=== PATIENT | male | born 1955 | race Two or more races ===

== ENCOUNTER 2021-05-08 08:03 | Inpatient (IN) | payer MEDICAID ==
[~2021-05-08] VITALS: Ht 165.1 cm; Wt 84.8 kg
--- NOTE | 2021-05-08 08:06 | NUR ---
TO ER BED 5, [id number] FROM [facility], FOUND UNRESPONSIVE. BG 44 UPON EMS ARRIVAL. GLUCAGON 1ML IM GIVEN MAIL CLERK BILLS, CONNECTED TO MONITOR, AWAITING MD COLEMAN
[2021-05-08] MEDS ORDERED: NALOXONE PREFILLED SYRINGE 2 MG/2 ML SYRINGE ONE (08:13)
--- NOTE | 2021-05-08 08:15 | NUR ---
NARCAN 2MG GIVEN IVP PER DR BEAVER VERBAL ORDER.
[2021-05-08] MEDS ORDERED: BISA10SU11 RC (08:26)
[2021-05-08] MEDS ORDERED: DORZ10DR13 EACHEYE (08:26)
[2021-05-08] MEDS ORDERED: GUAI100S11 PO (08:26)
[2021-05-08] MEDS ORDERED: INSU100V39 SQ (08:26)
[2021-05-08] MEDS ORDERED: ATOR40TA PO (08:26)
[2021-05-08] MEDS ORDERED: VITA1TAB56 PO (08:26)
[2021-05-08] MEDS ORDERED: FERR325T23 PO (08:26)
[2021-05-08] MEDS ORDERED: ACET-868 PO (08:26)
[2021-05-08] MEDS ORDERED: INSU100V7 SQ (08:26)
[2021-05-08] MEDS ORDERED: OMEG1CAP40 PO (08:26)
[2021-05-08] MEDS ORDERED: CHOL400T PO (08:26)
[2021-05-08] MEDS ORDERED: METO25TA20 PO (08:26)
[2021-05-08] MEDS ORDERED: CALC1TAB30 PO (08:26)
[2021-05-08] MEDS ORDERED: AMIN30LI2 PO (08:26)
[2021-05-08] MEDS ORDERED: POLY15DR40 EACHEYE (08:26)
[2021-05-08] MEDS ORDERED: GABA-532 PO (08:26)
[2021-05-08] MEDS ORDERED: MELA5TAB PO (08:26)
[2021-05-08] MEDS ORDERED: POLY17PO4 PO (08:26)
[2021-05-08] MEDS ORDERED: ASPI-1420 PO (08:26)
[2021-05-08] MEDS ORDERED: LATA2.5D2 EACHEYE (08:26)
[2021-05-08] MEDS ORDERED: GEMF600T PO (08:26)
[2021-05-08] MEDS ORDERED: AMLO10TA4 PO (08:26)
[2021-05-08] MEDS ORDERED: ASCO-352 PO (08:26)
[2021-05-08] MEDS ORDERED: BRIM5DRO EACHEYE (08:26)
[2021-05-08] MEDS ORDERED: FAMO20TA8 PO (08:26)
[2021-05-08] MEDS ORDERED: MAGN400O6 PO (08:26)
[2021-05-08] MEDS ORDERED: HUM10VIA SQ (08:26)
[2021-05-08] MEDS ORDERED: NA P133E RC (08:26)
[2021-05-08] MEDS ORDERED: TAMS-12 PO (08:26)
[2021-05-08] MEDS ORDERED: MULT-447 PO (08:26)
[2021-05-08] MEDS ORDERED: BUME1TAB8 PO (08:26)
[2021-05-08] MEDS ORDERED: IV LR 1000 ML 1,000 ML IV ONE (08:30)
[2021-05-08] MEDS ORDERED: NALOXONE PREFILLED SYRINGE 2 MG/2 ML SYRINGE IV ONE (08:30)
--- NOTE | 2021-05-08 08:30 | NUR ---
COVID ANTIGEN AND PCR SWAB DONE AND SENT TO LAB
--- NOTE | 2021-05-08 08:31 | NUR ---
AAOX3, BREATHING EVEN AND NON LABORED
[2021-05-08 08:40] LABS: BASOPHILS % (AUTO) 0.4 % (0.0-2.0); EOSINOPHILS % (AUTO) 0.4 % (0.0-6.0); HEMATOCRIT 36 % (39-51); LYMPHOCYTES # (AUTO) 1.6 K/uL (0.8-4.8); LYMPHOCYTES % (AUTO) 17.9 % (20.0-44.0); MEAN CORPUSCULAR HGB CONC 34 g/dl (31.0-36.0); MEAN CORPUSCULAR VOLUME 95 fL (80-96); MONOCYTES # (AUTO) 0.7 K/uL (0.1-1.30); MONOCYTES % (AUTO) 7.7 % (2.0-12.0); NEUTROPHILS # (AUTO) 6.6 K/uL (1.8-8.9); NEUTROPHILS % (AUTO) 73.6 % (43.0-81.0); PLATELET COUNT (AUTO) 285 K/uL (150-450); RED BLOOD CELL COUNT(AUTO) 3.74 MIL/uL (4.5-6.0)
[2021-05-08 09:14] LABS: ALANINE AMINOTRANSFERASE 22 U/L (12-78); ALBUMIN 3.3 g/dL (3.4-5.0); ALCOHOL, BLOOD < 3 mg/dL (0-0); ALKALINE PHOSPHATASE 124 U/L (46-116); ASPARTATE AMINOTRANSFERASE 16 U/L (15-37); BILIRUBIN,DIRECT 0.1 mg/dL (0.0-0.2); BILIRUBIN,TOTAL 0.3 mg/dL (0.2-1.0); CALCIUM, SERUM 8.7 mg/dL (8.5-10.1); CARBON DIOXIDE 26 mmol/L (21-32); CHLORIDE 103 mmol/L (98-107); CREATININE 2.9 mg/dL (0.6-1.3); GLUCOSE 75 mg/dL (74-106); SODIUM SERUM 140 mmol/L (136-145); TOTAL PROTEIN, SERUM 7.6 g/dL (6.4-8.2); UREA NITROGEN, BLOOD 38 mg/dL (7-18)
[2021-05-08 09:17] LABS: ACETAMINOPHEN 0 ug/ml (10-30); POTASSIUM 2.4 mmol/L (3.5-5.1)
[2021-05-08] MEDS ORDERED: POTASSIUM CHLORIDE 10 MEQ/50 ML PREMIXED IVPB FOR PERIPHERAL LINE IV ONE (09:30)
[2021-05-08] MEDS ORDERED: IV NS 0.9% 1,000 ML IV ONE (09:30)
[2021-05-08] MEDS ORDERED: POTASSIUM CL. PREMIX PERIPHER. 50 ML ONE (09:31)
[2021-05-08] MEDS ORDERED: POTASSIUM CHLORIDE 20 MEQ TAB.PRT.SR PO ONE ×2 (11:00→11:04)
[2021-05-08] MEDS ORDERED: ASPIRIN 325 MG TABLET PO ONE (11:00)
[2021-05-08] MEDS ORDERED: ASPIRIN 325 MG TABLET ONE (11:05)
[2021-05-08] MEDS ORDERED: NITROGLYCERIN PACKET 1 GM PACKET TOP ONE (12:00)
[2021-05-08] MEDS ORDERED: NITROGLYCERIN PACKET 1 GM PACKET ONE (12:22)
[2021-05-08] MEDS ORDERED: CEFTRIAXONE 1 G in IV D5W 50 ML IV SCH (13:00)
[2021-05-08] MEDS ORDERED: CEFTRIAXONE 1GM BAG (ER ONLY) 50 ML IV ONE (13:13)
[2021-05-08] MEDS ORDERED: VANCOMYCIN 1.5 GM in IV D5W 500 ML IV ONE (13:30)
[2021-05-08] MEDS ORDERED: HEPARIN SODIUM, PORCINE 5000 UNITS/1 ML VIAL IV ONE (14:00)
[2021-05-08] MEDS ORDERED: HEPARIN SODIUM, PORCINE 5000 UNITS/1 ML VIAL ONE (14:04)
[2021-05-08] MEDS ORDERED: HEPARIN INFUSION/D5W 500 ML IV ONE (14:06)
[2021-05-08] MEDS: HEPARIN INFUSION/D5W 500 ML IV PRN ×2 (14:12→19:10)
--- NOTE | 2021-05-08 14:33 | NUR ---
CALLED NURSING SUP REGARDING PT BED
--- NOTE | 2021-05-08 15:03 | NUR ---
ROOM 104
--- NOTE | 2021-05-08 15:34 | NUR ---
REPORT GIVEN TO MARIA EUGENIA MCCARTY).
[2021-05-08 15:58] LABS: BILIRUBIN,URINE NEGATIVE (NEGATIVE); COLOR,URINE YELLOW (YELLOW); LEUKOCYTE ESTERASE ,URINE NEGATIVE (NEGATIVE); NITRITE, URINE NEGATIVE (NEGATIVE); PH,URINE 5.5 (5.0-8.0); PROTEIN,URINE TRACE mg/dl (NEGATIVE); UGLUCOSE 250 MG/DL mg/dL (NEGATIVE); UROBILINOGEN,URINE 0.2 EU/dL (0.2)
--- NOTE | 2021-05-08 16:06 | NUR ---
PT TRANSFERRED TO [facility] PER ACLS PROTOCOL.
[2021-05-08 16:14] LABS: RBC,URINE NONE SEEN /HPF (0-2)
[2021-05-08 16:15] LABS: BACTERIA,URINE None seen /HPF (None Seen); SQUAMOUS EPITHELIAL CELL,UR Rare /HPF (None Seen); WBC,URINE 0-2 /HPF (0-3)
--- NOTE | 2021-05-08 16:24 | NUR ---
COMMUNITY CENTER DIRECTOR NOTE CALLED TO DR RICHARDSON ABOUT HEPARIN DRIP ,DR RICHARDSON ORDERED TO D\C DRIP AT HIS TIME , ORDER CARRIED OUT
[2021-05-08] MEDS ORDERED: MAG HYDROX/AL HYDROX/SIMETH 30 ML UDC PO PRN (16:30)
[2021-05-08] MEDS ORDERED: ZOLPIDEM TARTRATE 5 MG TABLET PO PRN (16:30)
[2021-05-08] MEDS ORDERED: HYDROCODONE/APAP 5/325MG TABLET PO PRN (16:30)
[2021-05-08] MEDS ORDERED: MAGNESIUM HYDROXIDE 30 ML UDC PO PRN (16:30)
[2021-05-08] MEDS ORDERED: ACETAMINOPHEN 325 MG TABLET PO PRN (16:30)
[2021-05-08] MEDS ORDERED: Z GUARD REMEDY 4 OZ OINT TP PRN (16:30)
[2021-05-08] MEDS: IV D5/0.45 NACL 1,000 ML IV PRN (16:30)
[2021-05-08] MEDS ORDERED: ONDANSETRON HCL/PF 4 MG/2 ML VIAL IVP PRN (16:30)
--- NOTE | 2021-05-08 16:48 | NUR ---
RN OPENING NOTE PATIENT RECEIVED FROM ALIGNING CHECKERTOSHA EM. PATIENT A/0X3. ON ROOM AIR BREATHING EVEN AND UNLABORED WITH O2SAT OF 96%. PATIENT V/S STABLE UPON RECEIPT OF PATIENT. PATIENT HAS RAC 18G AND L HAND 20G IV INTACT AND PATENT. RAC RUNNING HEPARIN INFUSION AT 1200 PER PROTOCOL. TELE SHOWS NSR/ST IN 100'S. ALL SAFETY MEASURES IN PLACE. BED IN LOWEST AND LOCKED POSITION. CALL LIGHT WITHIN REACH. WILL CONTINUE TO MONITOR. Addendum: 05/08/21 at 1652 by MARIA EUGENIA RIZO RN PATIENT RECEIVED AT 1615.
[2021-05-08] MEDS: GEMFIBROZIL 600 MG TABLET PO SCH (17:04)
--- NOTE | 2021-05-08 18:35 | NUR ---
RN closing Note Patient is resting comfortably and is in no acute distress. Call light and tray table with personal belongings within reach. Patient was monitored throughout shift and vitals remained in patient's base line. Interventions were completed as needed. All of the patient's needs have been met. Assistance was provided as needed. All due medications were administered as needed per MD orders. Will endorse to incoming nurse.
--- NOTE | 2021-05-08 19:50 | NUR ---
RN NOTE PATIENT RESTING IN BED, AROUSABLE. ON ROOM AIR, NO SOB NOTED. NO SIGNS OF DISCOMFORT OR ANY PAIN. IV ACCESS ON RIGHT AC #18 AND LEFT HAND #20, PATENT AND INTACT. ON HEPARIN, INFUSING @ 24ML/HR. NO S/S OF ANY BLEEDING. BED LOCKED AND IN LOWEST POSITION. CALL LIGHT WITHIN REACH. ALL NEEDS ANTICIPATED.
[2021-05-08 20:00] VITALS: BP 99/55
[2021-05-08] MEDS: TAMSULOSIN 0.4 MG CAP.SR.24H PO SCH (22:06)
[2021-05-08] MEDS: LATANOPROST EYE DROP 0.005% 2.5 ML BOTTLE EACHEYE SCH (22:06)
[2021-05-08] MEDS: ATORVASTATIN 40 MG TABLET PO SCH (22:06)
[2021-05-08] MEDS: TIMOLOL MAL/DORZOLAM HCL OPHTH 10 ML BOTTLE EACHEYE SCH (22:06)
[2021-05-08] MEDS: GABAPENTIN 300 MG CAPSULE PO SCH (22:06)
[2021-05-08] MEDS: INSULIN GLARGINE, 100 UNIT/ML CARTRIDGE SQ SCH (22:07)
[2021-05-09] VITALS: BP 129/61
--- NOTE | 2021-05-09 00:30 | NUR ---
RN NOTE RELAYED TROPONIN 4819 TO JEAN-CLAUDE GUERRERO MD WITH NEW ORDER FOR TROPONIN X3 Q3HRS. NOTED AND CARRIED OUT. YASIR CHARGE NURSE AWARE.
--- NOTE | 2021-05-09 02:38 | NUR ---
RN NOTE TROPONIN LVL DRAWN EARLIER ALONG WITH PTT DUE TO PATIENT'S REQUEST. RELAYED TROPONIN 4994 TO JEAN-CLAUDE GUERRERO AND PATIENT COMPLAINING OF CHEST PAIN 08/19. VITAL SIGNS REMAINS STABLE. WITH NO NEW ORDERS AT THIS TIME. OFFERED PATIENT NORCO PRN ORDER AND PATIENT REFUSED. PTT 67.5, NO CHANGE PER HEPARIN PROTOCOL ORDER. YASIR CHARGE NURSE AWARE. ASSISTED PATIENT TO RESTROOM, HAD X1 BM.
[2021-05-09 04:00] VITALS: BP 110/63
[2021-05-09] MEDS: IV D5/0.45 NACL 1,000 ML IV PRN (06:44)
--- NOTE | 2021-05-09 06:58 | NUR ---
RN NOTE PATIENT RESTING IN BED. ON ROOM AIR, NO SOB NOTED. IV ACCESS ON RIGHT AC #18 AND LEFT HAND #20, PATENT AND INTACT. ON HEPARIN, INFUSING @ 24ML/HR. NO S/S OF ANY BLEEDING. ASSISTED PATIENT TO BATHROOM, VOIDED X2 AND X2 BM. DUE MEDS GIVEN ORDERED. BED LOCKED AND IN LOWEST POSITION. CALL LIGHT WITHIN REACH. WILL ENDORSE TO AM SHIFT.
[2021-05-09 07:03] LABS: THYROID STIMULATING HORMONE 0.914 uIU/mL (0.358-3.74)
[2021-05-09 07:04] LABS: CALCIUM, SERUM 7.6 mg/dL (8.5-10.1); CREATININE 2.4 mg/dL (0.6-1.3); MAGNESIUM 2.1 mg/dL (1.8-2.4); PHOSPHORUS 2.3 mg/dL (2.5-4.9); POTASSIUM 3.4 mmol/L (3.5-5.1)
[2021-05-09 07:10] LABS: BASOPHILS # (AUTO) 0.1 K/uL (0.0-0.2); BASOPHILS % (AUTO) 0.4 % (0.0-2.0); EOSINOPHILS % (AUTO) 1.2 % (0.0-6.0); HEMATOCRIT 28 % (39-51); HEMOGLOBIN 9.5 g/dL (13.5-17.5); LYMPHOCYTES # (AUTO) 2.2 K/uL (0.8-4.8); LYMPHOCYTES % (AUTO) 13.9 % (20.0-44.0); MEAN CORPUSCULAR HGB CONC 34 g/dl (31.0-36.0); MEAN CORPUSCULAR VOLUME 96 fL (80-96); MONOCYTES # (AUTO) 0.7 K/uL (0.1-1.30); MONOCYTES % (AUTO) 4.5 % (2.0-12.0); NEUTROPHILS # (AUTO) 12.8 K/uL (1.8-8.9); PLATELET COUNT (AUTO) 213 K/uL (150-450); RED BLOOD CELL COUNT(AUTO) 2.94 MIL/uL (4.5-6.0); WHITE BLOOD COUNT (AUTO) 16.1 K/uL (4.3-11.0)
[2021-05-09 08:00] VITALS: BP 105/64
--- NOTE | 2021-05-09 08:06 | NUR ---
RN OPENING NOTE PATIENT RECEIVED IN BED, AO X 3, ABLE TO RESPONDS PHYSICAL STIMULI. IN NO ACUTE DISTRESS NOTED. RESPIRATORY EVEN AND UNLABORED ON ROOM AIR. SKIN IS WARM TO TOUCH, KEEP CLEAN/DRY, INTACT IV SITE. KEPT ELEVATED HOB FOR ENSURE AIRWAY AND ASPIRATION PRECAUTION, ALSO LOWEST POSITION OF THE BED, S/R UP X 3 FOR SAFETY. ALL SAFETY PRECAUTION APPLIED. CALL LIGHT WITHIN REACH, WILL CONTINUE TO MONITOR.
[2021-05-09] MEDS ORDERED: POTASSIUM CHLORIDE 20 MEQ TAB.PRT.SR PO SCH (09:30)
[2021-05-09] MEDS: ASPIRIN EC 81 MG TABLET.DR PO SCH (09:33)
[2021-05-09] MEDS: GEMFIBROZIL 600 MG TABLET PO SCH ×2 (09:33→16:38)
[2021-05-09] MEDS: PANTOPRAZOLE 40 MG TABLET.DR PO SCH (09:33)
[2021-05-09] MEDS: MULTIVITAMINS,THERAGRAN 1 UDTAB TABLET PO SCH (09:33)
[2021-05-09] MEDS: GABAPENTIN 300 MG CAPSULE PO SCH ×2 (09:35→21:57)
[2021-05-09] MEDS: TIMOLOL MAL/DORZOLAM HCL OPHTH 10 ML BOTTLE EACHEYE SCH ×2 (09:36→21:58)
[2021-05-09 12:00] VITALS: BP 127/79
[2021-05-09] MEDS: HEPARIN INFUSION/D5W 500 ML IV PRN (15:33)
[2021-05-09 16:00] VITALS: BP 110/63
[2021-05-09] MEDS ORDERED: K PHOS NEUTRAL 250 MG TABLET PO ONE (16:00)
--- NOTE | 2021-05-09 18:30 | NUR ---
RN CLOSE NOTE PATIENT IN BED, IN NO ACUTE DISTRESS OBSERVED. RESPIRATION EVEN AND UNLABORED ON ROOM AIR. SKIN IS WARM TO TOUCH KEEP CLEAN//DRY, INTACT IV SITE. PATIENT RECEIVED CARDIAC CATH ORDER, HOWEVER, REFUSED TO SIGN ON CONSENT. CALLED DTR: YOLANDA CURRY BUT UNABLE TO LEAVE MESSAGE. INFORMED DR. MCINTYRE REGARDING ABOVE. KEEP ELEVATED HOB FOR ENSURE AIRWAY AND ASPIRATION PRECAUTION. ALSO LOWEST POSITION OF THE BED FOR SAFETY. CALL LIGHT WITHIN REACH, WILL CONTINUE TO MONITOR. Addendum: 05/09/21 at 1946 by SOBIA GHOTRA RN ERROR
--- NOTE | 2021-05-09 19:20 | NUR ---
RN OPENING NOTES RECEIVED PATIENT ON BED, AWAKE, VERBALLY RESPONSIVE, BLIND, A/O X 3 ON ROOM AIR SATING AT 100%. RESPIRATORY EVEN AND UNLABORED, NO SOB NOTED. REMAIN AFEBRILE. NO S/S OF DISTRESS NOTED. NOTED WITH RAC #18 AND LEFT HAND #20 PERIPHERAL LINE, INTACT PATENT, FLUSHED WITH NS. NO INFILTRATION NOTED AT SITE, RUNNING WITH D5 1/2 NS 1L @ 75ML/HR AND HEPARIN DRIP @ 1200 UNITS. SAFETY MEASURE PROVIDED. BED IN LOWEST POSITION, LOCKED. BED ALARM ARMED. CONTINUE TO MONITOR.
[2021-05-09] MEDS ORDERED: DEXTROSE 50%-WATER 50 ML DISP.SYRIN IV PRN (19:30)
[2021-05-09 20:00] VITALS: BP 146/74
--- NOTE | 2021-05-09 20:26 | NUR ---
RN NOTES TRIED TO OBTAINED CONSENT FROM DAUGHTER YOLANDA, REGARDING CARDIAC CATHETERIZATION PROCEDURE, UNABLE TO REACH AT THIS TIME, VOICEMAIL NOT SETUP. WILL TRY AGAIN.
[2021-05-09] MEDS: TAMSULOSIN 0.4 MG CAP.SR.24H PO SCH (21:57)
[2021-05-09] MEDS: ATORVASTATIN 40 MG TABLET PO SCH (21:57)
[2021-05-09] MEDS: LATANOPROST EYE DROP 0.005% 2.5 ML BOTTLE EACHEYE SCH (21:58)
[2021-05-09] MEDS: BLOOD SUGAR DIAGNOSTIC 1 EACH STRIP IN SCH (22:06)
[2021-05-09] MEDS: *INSULIN REGULAR(HUMULIN R)HUM 100 UNIT/ML VIAL SQ PRN (22:11)
[2021-05-09] MEDS: INSULIN GLARGINE, 100 UNIT/ML CARTRIDGE SQ SCH (22:12)
[2021-05-10] VITALS: BP 141/79
--- NOTE | 2021-05-10 03:00 | NUR ---
TOSHA NOTES PTT 59.2, NO CHANGE PER HEPARIN PROTOCOL ORDER. CHARGE NURSE AWARE. Addendum: 05/10/21 at 0345 by LENI SCOTT RN CONTINUE WITH CURRENT HEPARIN DRIP DOSAGE 1200 UNITS /HR.
[2021-05-10 04:00] VITALS: BP 112/72
[2021-05-10 06:04] LABS: BASOPHILS # (AUTO) 0.1 K/uL (0.0-0.2); BASOPHILS % (AUTO) 0.6 % (0.0-2.0); EOSINOPHILS % (AUTO) 2.9 % (0.0-6.0); HEMATOCRIT 30 % (39-51); HEMOGLOBIN 10.3 g/dL (13.5-17.5); LYMPHOCYTES # (AUTO) 2.6 K/uL (0.8-4.8); LYMPHOCYTES % (AUTO) 21.8 % (20.0-44.0); MEAN CORPUSCULAR HGB CONC 34 g/dl (31.0-36.0); MEAN CORPUSCULAR VOLUME 95 fL (80-96); MONOCYTES # (AUTO) 0.7 K/uL (0.1-1.30); MONOCYTES % (AUTO) 5.5 % (2.0-12.0); NEUTROPHILS # (AUTO) 8.1 K/uL (1.8-8.9); NEUTROPHILS % (AUTO) 69.2 % (43.0-81.0); PLATELET COUNT (AUTO) 234 K/uL (150-450); RED BLOOD CELL COUNT(AUTO) 3.19 MIL/uL (4.5-6.0); WHITE BLOOD COUNT (AUTO) 11.8 K/uL (4.3-11.0)
[2021-05-10 06:50] LABS: ALBUMIN 2.6 g/dL (3.4-5.0); BILIRUBIN,TOTAL 0.5 mg/dL (0.2-1.0); CALCIUM, SERUM 8.1 mg/dL (8.5-10.1); MAGNESIUM 2.1 mg/dL (1.8-2.4); PHOSPHORUS 3.4 mg/dL (2.5-4.9); POTASSIUM 3.7 mmol/L (3.5-5.1); TOTAL PROTEIN, SERUM 6.7 g/dL (6.4-8.2)
--- NOTE | 2021-05-10 07:01 | NUR ---
RN NOTES NO SIGNIFICANT CHANGES THROUGH OUT THE SHIFT, PATIENT REMAIN STABLE . RESPIRATORY EVEN AND UNLABORED, NO SOB NOTED. REMAIN AFEBRILE. NO S/S OF DISTRESS NOTED. NOTED WITH RAC #18 AND LEFT HAND #20 PERIPHERAL LINE, INTACT PATENT, FLUSHED WITH NS. NO INFILTRATION NOTED AT SITE HEPARIN DRIP @ 1200 UNITS/HR. ALL DUE MEDS GIVEN ORDERED. SAFETY MEASURE PROVIDED. BED IN LOWEST POSITION, LOCKED. BED ALARM ARMED. ENDORSED TO NEXT SHIFT.
[2021-05-10] MEDS: PANTOPRAZOLE 40 MG TABLET.DR PO SCH (07:30)
--- NOTE | 2021-05-10 07:42 | NUR ---
RN OPENING NOTES RECEIVED PATIENT ON BED, AWAKE, VERBALLY RESPONSIVE, BLIND, A/O X 3 ON ROOM AIR SATING AT 100%. RESPIRATORY EVEN AND UNLABORED, NO SOB NOTED. NOTED WITH RAC #18 AND LEFT HAND #20 PERIPHERAL LINE, INTACT PATENT, FLUSHED WITH NS. NO INFILTRATION NOTED AT SITE, HEPARIN DRIP @ 1200 UNITS. PT STILL REFUSING TO SIG CONSENT FOR HEART CATH ,STATED IT IS DANGEROUS ,EDUCATION PROVIDED, SAFETY MEASURE IN PLACED , BED IN LOWEST POSITION, LOCKED. BED ALARM ARMED. CONTINUE TO MONITOR.
[2021-05-10 08:00] VITALS: BP 132/73
[2021-05-10] MEDS: BLOOD SUGAR DIAGNOSTIC 1 EACH STRIP IN SCH ×4 (08:00→22:00)
--- NOTE | 2021-05-10 08:00 | NUR ---
RN NOTES DR ADAM AT THE BEDSIDE, SPEAKING TO PT REGARDING BALANCE AND HAIRSPRING ASSEMBLER AND PT AGREED TO GET BALANCE AND HAIRSPRING ASSEMBLER DONE.
[2021-05-10] MEDS: GEMFIBROZIL 600 MG TABLET PO SCH ×2 (09:00→16:26)
[2021-05-10] MEDS: TIMOLOL MAL/DORZOLAM HCL OPHTH 10 ML BOTTLE EACHEYE SCH ×2 (09:35→21:06)
--- NOTE | 2021-05-10 11:00 | NUR ---
RN NOTES HOOP MAKER CANCELED .
[2021-05-10] MEDS: ASPIRIN EC 81 MG TABLET.DR PO SCH (11:24)
[2021-05-10] MEDS: GABAPENTIN 300 MG CAPSULE PO SCH ×2 (11:24→21:04)
[2021-05-10] MEDS: MULTIVITAMINS,THERAGRAN 1 UDTAB TABLET PO SCH (11:24)
[2021-05-10 12:00] VITALS: BP 133/66
[2021-05-10 16:00] VITALS: BP 134/84
[2021-05-10] MEDS: HEPARIN INFUSION/D5W 500 ML IV PRN (16:04)
--- NOTE | 2021-05-10 18:00 | NUR ---
RN NOTES NO SIGNFICANT CHANGES NOTED ON THIS SHIFT, PT REMAINS ON HEPARIN DRIP AT 1200 U/HR, NO COMPLICATION NOTED, WILL ENDORSE TO WIRE COILER NURSE FOR CONTINUITY OF CARE .
[2021-05-10 20:00] VITALS: BP 155/80
--- NOTE | 2021-05-10 20:00 | NUR ---
RN OPENING NOTES RECEIVED PATIENT IN BED, AWAKE, VERBALLY RESPONSIVE, BLIND, A/O X 3 ON ROOM AIR SATING AT 97%.NO SOB NO DISTRESS NOTED V/S STABLE REMAIN AFEBRILE. WITH RAC #18 AND LEFT HAND #20 PERIPHERAL LINE, INTACT PATENT, FLUSHED WITH NS. NO INFILTRATION NOTED AT SITE, ON HEPARIN DRIP @ 1200 UNITS. ORDERED NO ASE NOTED ALL DUE MEDS GIVEN ORDERED ALL NEEDS ATTENDED TOO CALL LIGHT WITHIN REACH SAFETY MEASURE PROVIDED. BED IN LOWEST POSITION, LOCKED. BED ALARM ARMED. CONTINUE TO MONITOR. PTS FOR CARDIAC IN AM NPO POST MN INSTRUCTION GIVEN TO PTS VERBALIZES UNDERSTANDING.
[2021-05-10] MEDS: TAMSULOSIN 0.4 MG CAP.SR.24H PO SCH (21:03)
[2021-05-10] MEDS: ATORVASTATIN 40 MG TABLET PO SCH (21:04)
[2021-05-10] MEDS: LATANOPROST EYE DROP 0.005% 2.5 ML BOTTLE EACHEYE SCH (21:06)
[2021-05-10] MEDS: INSULIN GLARGINE, 100 UNIT/ML CARTRIDGE SQ SCH (22:00)
--- NOTE | 2021-05-10 22:00 | NUR ---
SENIOR ENERGY TRADER NOTES 2200HRS BLOOD SUGAR OF 203 LANTUS DOSE AND INSULIN SLIDING SCALE NOT ADMINISTERED D/T PTS NPO STATUS WILL CONTINUE TO MONITOR PTS.
[2021-05-11] VITALS: BP 130/80
--- NOTE | 2021-05-11 | NUR ---
PROCEDURES NURSE NOTES AT 12MN BLOOD PRESSURE OF 160/86 . PTS FOR CARDIAC CATH IN AM RELAYED TO DR GUERRERO PTS NOT ON ANY BP MEDS , DR GUERRERO SAID TO CHECK MANUALLY BLOOD PRESSURE VIA MANUALLY READING 130/80. PTS WITH NO PAIN AT THIS TIME WILL CONTINUE TO MONITOR PTS.
[2021-05-11] MEDS: *INSULIN REGULAR(HUMULIN R)HUM 100 UNIT/ML VIAL SQ PRN ×2 (00:08→21:32)
[2021-05-11 04:00] VITALS: BP 147/84
--- NOTE | 2021-05-11 06:58 | NUR ---
SUPERINTENDENT RECREATION NOTES PTS IN BED NPO STATUS FOR CARDIAC CATH TODAY , CONT ON HEPARIN DRIP 1200 UNITS/24ML PTT AT 4AM IS 55.2 NO CHANGE , NEXT PTT ON 05/12/21 AT 5AM , PTS ON SR -74 ON R/A SATING 100% NO SOB NO DISTRESS NOTED ,WILL ENDORSE TO RN DAY SHIFT FOR CONTINUITY OF CARE.
--- NOTE | 2021-05-11 07:00 | NUR ---
RN NOTES RECEIVED PATIENT ON BED, AWAKE, VERBALLY RESPONSIVE, BLIND, A/O X 3 ON ROOM AIR O2 SAT WNL , RESPIRATORY EVEN AND UNLABORED, NO SOB NOTED. NOTED WITH RAC #18 AND LEFT HAND #20 PERIPHERAL LINE, INTACT PATENT, FLUSHED WITH NS. NO INFILTRATION NOTED AT SITE, SAFETY MEASURE IN PLACED , PT KEPT NPO AT THIS TIME FOR CARDIAC CATH , BED IN LOWEST POSITION, LOCKED. BED ALARM ARMED. CONTINUE TO MONITOR.
[2021-05-11 07:10] LABS: BASOPHILS # (AUTO) 0.1 K/uL (0.0-0.2); BASOPHILS % (AUTO) 0.6 % (0.0-2.0); EOSINOPHILS % (AUTO) 4.3 % (0.0-6.0); HEMATOCRIT 30 % (39-51); HEMOGLOBIN 10.3 g/dL (13.5-17.5); LYMPHOCYTES # (AUTO) 2.5 K/uL (0.8-4.8); LYMPHOCYTES % (AUTO) 31.3 % (20.0-44.0); MEAN CORPUSCULAR HGB CONC 34 g/dl (31.0-36.0); MEAN CORPUSCULAR VOLUME 96 fL (80-96); MONOCYTES # (AUTO) 0.5 K/uL (0.1-1.30); MONOCYTES % (AUTO) 6.2 % (2.0-12.0); NEUTROPHILS # (AUTO) 4.6 K/uL (1.8-8.9); NEUTROPHILS % (AUTO) 57.6 % (43.0-81.0); PLATELET COUNT (AUTO) 249 K/uL (150-450); RED BLOOD CELL COUNT(AUTO) 3.16 MIL/uL (4.5-6.0); WHITE BLOOD COUNT (AUTO) 8.1 K/uL (4.3-11.0)
[2021-05-11 07:18] LABS: ALBUMIN 2.5 g/dL (3.4-5.0); BILIRUBIN,TOTAL 0.4 mg/dL (0.2-1.0); CALCIUM, SERUM 8.4 mg/dL (8.5-10.1); CREATININE 1.8 mg/dL (0.6-1.3); MAGNESIUM 2.1 mg/dL (1.8-2.4); PHOSPHORUS 3.1 mg/dL (2.5-4.9); POTASSIUM 3.9 mmol/L (3.5-5.1); TOTAL PROTEIN, SERUM 6.4 g/dL (6.4-8.2)
[2021-05-11] MEDS: BLOOD SUGAR DIAGNOSTIC 1 EACH STRIP IN SCH ×4 (07:52→21:23)
[2021-05-11 08:00] VITALS: BP 154/85
[2021-05-11] MEDS: ASPIRIN EC 81 MG TABLET.DR PO SCH (08:18)
[2021-05-11] MEDS: MULTIVITAMINS,THERAGRAN 1 UDTAB TABLET PO SCH (08:18)
[2021-05-11] MEDS: PANTOPRAZOLE 40 MG TABLET.DR PO SCH (08:18)
[2021-05-11] MEDS: GABAPENTIN 300 MG CAPSULE PO SCH ×2 (08:18→21:22)
[2021-05-11] MEDS: TIMOLOL MAL/DORZOLAM HCL OPHTH 10 ML BOTTLE EACHEYE SCH ×2 (08:21→21:23)
[2021-05-11] MEDS: GEMFIBROZIL 600 MG TABLET PO SCH ×2 (08:24→16:55)
[2021-05-11] MEDS ORDERED: IV NS 0.9% 1,000 ML ONE (10:10)
[2021-05-11] MEDS ORDERED: IV SET PRIMARY PUMP SET 1 EA INFUS.SET MC ONE (10:10)
[2021-05-11] MEDS ORDERED: NITROGLYCERIN IN 5 % DEXTROSE 250 ML IV ONE (10:11)
[2021-05-11] MEDS ORDERED: IODIXANOL 150 ML IV ONE (10:11)
[2021-05-11] MEDS ORDERED: LIDOCAINE HCL/PF 1% 30 ML SDV ONE (10:12)
[2021-05-11] MEDS ORDERED: FENTANYL PF 100MCG/2ML AMPUL ONE (10:31)
[2021-05-11] MEDS ORDERED: MIDAZOLAM HCL 2 MG/2ML VIAL ONE (10:32)
[2021-05-11 12:35] VITALS: BP 116/77
--- NOTE | 2021-05-11 12:35 | NUR ---
RN NOTES RECEIVED PT FROM CAR REPAIR SUPERVISOR. A/Ox4, R WRIST TR BAND ON , SITE CLEAN, NO COMPLICATION NOTED ON THE SITE, PT ABLE TO MOVE R HAND FINGERS , ROLY NUMBNESS AND TINGLING , VSS STABLE , CONTINUE TO MONITOR VSS AND REMOVE TR BAND PER MD ORDER AND PROTOCOL .
[2021-05-11] MEDS: INSULIN REGULAR, HUMAN 100 UNIT/ML 3 ML VIAL SQ PRN ×2 (12:53→17:08)
[2021-05-11] MEDS: HEPARIN INFUSION/D5W 500 ML IV PRN (12:54)
[2021-05-11 16:00] VITALS: BP 145/77
--- NOTE | 2021-05-11 16:30 | NUR ---
RN NOTES PT ON HEPARIN AT 1200U/HR , TR BAND REMOVED , RIGHT WRIST SITE , CLEAN , DRY , NO COMPLICATION, POSITIVE RADIAL PULSED , PT DENIES NUMBNESS AND TINGLING , ABLE TO MOVE RIGHT HAND FINGERS , VSS STABLE, CONTINUE TO MONITOR.
--- NOTE | 2021-05-11 18:26 | NUR ---
RN NOTES PT AT REST , NO DISTRESS NOTED, WILL ENDORSE TO NUTRITION PROFESSOR NURSE FOR CONTINUITY OF CARE .
[2021-05-11 20:00] VITALS: BP 140/85
[2021-05-11] MEDS: ATORVASTATIN 40 MG TABLET PO SCH (21:22)
[2021-05-11] MEDS: TAMSULOSIN 0.4 MG CAP.SR.24H PO SCH (21:22)
[2021-05-11] MEDS: INSULIN GLARGINE, 100 UNIT/ML CARTRIDGE SQ SCH (21:30)
[2021-05-11] MEDS: LATANOPROST EYE DROP 0.005% 2.5 ML BOTTLE EACHEYE SCH (21:33)
--- NOTE | 2021-05-11 22:17 | NUR ---
RN NOTE RECEIVED PATIENT IN BED, SLEEPING, AROUSABLE TO NAME AND TOUCH. UNABLE TO SEE IN BOTH EYES. ABLE TO FOLLOW COMMANDS. RELAXED. BREATHING EVEN AND UNLABORED. TOLERATING ROOM AIR. DENIES FEELING SOB. HOB ELEVATED 30 DEGREES. DENIES CHEST PAIN. DENIES BODY PAIN. SKIN WARM AND DRY. NOTED WITH RIGHT AC 20G AND LEFT HAND 20G, PERIPHERAL IV. PATENT. CURRENTLY INFUSING HEPARIN AT 1200 UNITS/HR. NO BLEEDING NOTED. RIGHT WRIST SMALL OPEN WOUND FROM AM PROCEDURE NOTED. TRANSPARENT DRESSING INTACT. RADIAL ARTERY PULSE WNL. ABLE TO MOVE ALL FINGERS. NO S/S OF HYPO/HYPERGLYCEMIA. BED LOW, IN LOCKED POSITION, CALL LIGHT WITHIN REACH.
[2021-05-12] VITALS: BP 138/86
[2021-05-12 04:00] VITALS: BP 130/68
--- NOTE | 2021-05-12 07:30 | NUR ---
RN OPENING NOTES RECEIVED PATIENT IN BED, ASLEEP, EASILY AWAKEN BY VERBAL AND TACTILE STIMULI, BLIND, A/O X 3 ON ROOM AIR TOLERATING WELL. NO SO, NO DISTRESS NOTED WITH RAC #18 AND LEFT HAND #20 PERIPHERAL LINE, INTACT PATENT, FLUSHED WITH NS. NO INFILTRATION NOTED AT SITE, ON HEPARIN DRIP @ 1200 UNITS. ORDERED NO ASE NOTED. ON TELE READING SHOWING SR-ST. SAFETY MEASURE IN PLACE: BED IN LOWEST POSITION, LOCKED. BED ALARM ARMED, SIDE RAILS UP X 2, CALL LIGHT WITHIN EASY REACH. WILL CONTINUE TO MONITOR ACCORDINGLY.
[2021-05-12] MEDS: PANTOPRAZOLE 40 MG TABLET.DR PO SCH (07:35)
--- NOTE | 2021-05-12 07:35 | NUR ---
RN NOTES APTT 43.8. HEPARIN DRIP INCREASE BY 200UNITS/HR PER PROTOCOL. APTT TO BE CHECKED AFTER 6 HOURS.
[2021-05-12] MEDS: BLOOD SUGAR DIAGNOSTIC 1 EACH STRIP IN SCH ×4 (07:42→21:41)
[2021-05-12 08:00] VITALS: BP 126/75
[2021-05-12] MEDS: TIMOLOL MAL/DORZOLAM HCL OPHTH 10 ML BOTTLE EACHEYE SCH ×2 (08:20→21:43)
[2021-05-12] MEDS: GEMFIBROZIL 600 MG TABLET PO SCH ×2 (08:21→17:35)
[2021-05-12] MEDS: ASPIRIN EC 81 MG TABLET.DR PO SCH (08:21)
[2021-05-12] MEDS: GABAPENTIN 300 MG CAPSULE PO SCH ×2 (08:21→21:30)
[2021-05-12] MEDS: MULTIVITAMINS,THERAGRAN 1 UDTAB TABLET PO SCH (08:21)
[2021-05-12] MEDS: HEPARIN INFUSION/D5W 500 ML IV PRN (11:35)
[2021-05-12] MEDS: INSULIN REGULAR, HUMAN 100 UNIT/ML 3 ML VIAL SQ PRN ×2 (11:56→17:42)
[2021-05-12 12:00] VITALS: BP 118/67
[2021-05-12 13:23] LABS: BASOPHILS # (AUTO) 0.1 K/uL (0.0-0.2); BASOPHILS % (AUTO) 0.9 % (0.0-2.0); EOSINOPHILS % (AUTO) 3.9 % (0.0-6.0); HEMATOCRIT 32 % (39-51); HEMOGLOBIN 10.5 g/dL (13.5-17.5); LYMPHOCYTES # (AUTO) 2.5 K/uL (0.8-4.8); LYMPHOCYTES % (AUTO) 38.3 % (20.0-44.0); MEAN CORPUSCULAR HGB CONC 33 g/dl (31.0-36.0); MEAN CORPUSCULAR VOLUME 98 fL (80-96); MONOCYTES # (AUTO) 0.6 K/uL (0.1-1.30); MONOCYTES % (AUTO) 8.6 % (2.0-12.0); NEUTROPHILS # (AUTO) 3.2 K/uL (1.8-8.9); NEUTROPHILS % (AUTO) 48.3 % (43.0-81.0); PLATELET COUNT (AUTO) 240 K/uL (150-450); RED BLOOD CELL COUNT(AUTO) 3.23 MIL/uL (4.5-6.0); WHITE BLOOD COUNT (AUTO) 6.6 K/uL (4.3-11.0)
--- NOTE | 2021-05-12 13:30 | NUR ---
RN NOTES CHARGE NURSE RECEIVED A REPORT FROM LAB. BLOOD GLUCOSE OF 408. PATIENT JUST HAD HIS LUNCH AT THE TIME OF BLOOD DRAW. ACCUCHECK PRIOR TO LUNCH WAS 189, INSULIN COVERAGE GIVEN. WILL RE CHECK BLOOD SUGAR AND WILL CONTINUE TO MONITOR.
[2021-05-12 13:36] LABS: CALCIUM, SERUM 8.3 mg/dL (8.5-10.1); POTASSIUM 3.8 mmol/L (3.5-5.1)
--- NOTE | 2021-05-12 14:00 | NUR ---
RN NOTES PER [facility] DEPARTMENT, BLOOD SPECIMEN NOT ENOUGH TO PROCESS PTT. THE WILL SEND SOMEONE TO DRAW BLOOD AGAIN.
--- NOTE | 2021-05-12 14:45 | NUR ---
RN NOTE CALLED LAB TO FOLLOW UP FOR PTT. SPOKE TO BRANDON. PER TERRI THEY WILL SEND SOMEONE TO DRAW BLOOD.
--- NOTE | 2021-05-12 15:04 | NUR ---
RN NOTE CALLED LAB TO FOLLOW UP FOR PTT. AGAIN. THEY TOLD ME THEY WILL SEND SOMEONE TO DO THE BLOOD DRAW FOR PTT. WILL CONTINUE TO FOLLOW UP.
--- NOTE | 2021-05-12 15:24 | NUR ---
RN NOTES COMMUNITY ASSOCIATE ABLE TO DRAW BLOOD FOR PTT. PATIENT'S IV ACCESS ON LFT AC DISLODGED. HOOKED HEPARIN DRIP ON LEFT ARM AFTER BLOOD DRAW. Addendum: 05/12/21 at 1534 by DAIANA DUMONT RN CORRECTION: HOOKED HEPARIN DRIP ON PATIENT'S IV ACCESS ON LEFT HAND.
[2021-05-12 16:00] VITALS: BP 111/62
--- NOTE | 2021-05-12 18:53 | NUR ---
RN CLOSING NOTES PATIENT IN BED, ASLEEP, EASILY AWAKEN BY VERBAL AND TACTILE STIMULI, BLIND, A/O X 3 ON ROOM AIR TOLERATING WELL. NO SO, NO DISTRESS NOTED WITH RAC #18 AND LEFT HAND #20 PERIPHERAL LINE, INTACT PATENT, FLUSHED WITH NS. NO INFILTRATION NOTED AT SITE, ON HEPARIN DRIP @ 1400 UNITS. ORDERED NO ASE NOTED. ON TELE READING SHOWING SR-ST. SAFETY MEASURE IN PLACE: BED IN LOWEST POSITION, LOCKED. BED ALARM ARMED, SIDE RAILS UP X 2, CALL LIGHT WITHIN EASY REACH. WILL ENDORSE TO ONCOMING SHIFT FOR BRIAN.
--- NOTE | 2021-05-12 19:00 | NUR ---
RN NOTE RECEIVED PATIENT IN BED, AO X 4, IN NO ACUTE DISTRESS AT THIS TIME. RESPIRATIONS UNLABORED, SATURATION AT 96% ON ROOM AIR, SR ON THE MONITOR, HR IS 73. NOTED IV SITE AT L HAND/WRIST 20G, PATENT AND FLUSHING WELL, NO S/S OF INFECTION OR INFILTRATION, WITH HEPARIN INFUSION AT 1400 UNITS/HR. NO SIGN OF BLEEDING NOTED. SAFETY MEASURES IMPLEMENTED. PATIENT BED ALARM IS ON. HEAD OF BED ELEVATED. BED IS LOCKED, IN LOWEST POSITION AND SIDE RAILS UP. CALL LIGHT WITHIN REACH OF THE PATIENT. WILL CONTINUE TO MONITOR AND REASSESS FOR ANY CHANGES.
[2021-05-12 20:00] VITALS: BP 155/80
[2021-05-12] MEDS: ATORVASTATIN 40 MG TABLET PO SCH (21:30)
[2021-05-12] MEDS: TAMSULOSIN 0.4 MG CAP.SR.24H PO SCH (21:30)
[2021-05-12] MEDS: LATANOPROST EYE DROP 0.005% 2.5 ML BOTTLE EACHEYE SCH (21:43)
[2021-05-12] MEDS: *INSULIN REGULAR(HUMULIN R)HUM 100 UNIT/ML VIAL SQ PRN (21:44)
[2021-05-12] MEDS: INSULIN GLARGINE, 100 UNIT/ML CARTRIDGE SQ SCH (21:49)
[2021-05-13] VITALS: BP 154/78
[2021-05-13 04:00] VITALS: BP 110/69
[2021-05-13] MEDS ORDERED: HEPARIN INFUSION/D5W 500 ML IV ONE ×2 (05:26→20:43)
[2021-05-13] MEDS: HEPARIN INFUSION/D5W 500 ML IV PRN (06:27)
--- NOTE | 2021-05-13 07:30 | NUR ---
RECRUITER ACCOUNT MANAGER OPENING NOTES RECEIVED PATIENT ON BED RESTING AND A/O X4. ON ROOM AIR TOLERATING WELL. NO SOB NOTED. NOT IN DISTRESS. WITH NO COMPLAINTS OF PAIN OR DISCOMFORT AT THIS TIME. ON TELE MONITOR CURRENTLY READING SINUS RHYTHM AT 76BPM. WITH IV ACCES AT LEFT HAND G20 WITH HEPARIN IV DRIP AT 1400. VINNYTA FROM LAB CALLED AND PTT OF PATIENT IS 79.7. DECREASED IV DRIP TO 1300 PER HEPARIN DOSING PROTOCOL. WILL RECHECK PATIENT'S PTT AT 1330. SAFETY MEASURES IN PLACED. CALL LIGHT WITHIN REACH. BED ON LOWEST LOCKED POSITION, SIDE RAILS UP X2. WILL CONTINUE TO MONITOR.
[2021-05-13 08:00] VITALS: BP 141/76
[2021-05-13] MEDS: BLOOD SUGAR DIAGNOSTIC 1 EACH STRIP IN SCH ×4 (08:02→21:54)
[2021-05-13] MEDS: PANTOPRAZOLE 40 MG TABLET.DR PO SCH (08:02)
[2021-05-13] MEDS: GABAPENTIN 300 MG CAPSULE PO SCH ×2 (08:15→21:38)
[2021-05-13] MEDS: GEMFIBROZIL 600 MG TABLET PO SCH ×2 (08:15→16:59)
[2021-05-13] MEDS: ASPIRIN EC 81 MG TABLET.DR PO SCH (08:15)
[2021-05-13] MEDS: MULTIVITAMINS,THERAGRAN 1 UDTAB TABLET PO SCH (08:15)
[2021-05-13] MEDS: INSULIN REGULAR, HUMAN 100 UNIT/ML 3 ML VIAL SQ PRN ×4 (08:16→22:01)
[2021-05-13] MEDS: TIMOLOL MAL/DORZOLAM HCL OPHTH 10 ML BOTTLE EACHEYE SCH ×2 (08:24→21:38)
[2021-05-13 12:00] VITALS: BP 136/75
[2021-05-13 16:00] VITALS: BP 140/71
--- NOTE | 2021-05-13 19:01 | NUR ---
PERSONAL DEVELOPMENT EDUCATOR CLOSING NOTES PATIENT ON BED RESTING AND A/O X4. ON ROOM AIR TOLERATING WELL. NO SOB NOTED. NOT IN DISTRESS. WITH NO COMPLAINTS OF PAIN OR DISCOMFORT AT THIS TIME. ON TELE MONITOR CURRENTLY READING SINUS RHYTHM AT 75BPM. WITH IV ACCES AT LEFT HAND G20 WITH HEPARIN IV DRIP AT 1300. DUE MEDS GIVEN. PATIENT IS FOR TRANSFER TO [facility] FOR CABG. SAFETY MEASURES IN PLACED. CALL LIGHT WITHIN REACH. BED ON LOWEST LOCKED POSITION, SIDE RAILS UP X2. WILL ENDORSE TO NEXT SHIFT FOR BRIAN.
--- NOTE | 2021-05-13 19:10 | NUR ---
RN NOTE RECEIVED CALL FROM LAB AND PTT IS 76.9. ADJUSTED HEPARIN DRIP RATE PER PROTOCOL TO 1200.
--- NOTE | 2021-05-13 19:40 | NUR ---
RN OPENING NOTES: RECEIVED PATIENT IN BED AWAKE, A/O X4 VERBALLY RESPONSIVE. ON ROOM AIR AND PT TOLERATING WELL. BREATHING EVEN ND UNLABORED. NO SOB NOTED. IV ACCES AT LEFT HAND #20G INTACT AND PATENT. NO S/S OF INFILTRATIONS. WITH HEPARIN IV DRIP AT 1200. NO C/O PAIN OR DISCOMFORT. NO ACUTE DISTRESS. ALL SAFETY MEASURES IN PLACE. BED ON LOWEST POSITION AND LOCKED, SIDE RAILS UP X2. PLACE CALL LIGHT WITH IN REACH. WILL CONTINUE TO MONITOR.
[2021-05-13 20:00] VITALS: BP 136/78
[2021-05-13] MEDS: TAMSULOSIN 0.4 MG CAP.SR.24H PO SCH (21:38)
[2021-05-13] MEDS: LATANOPROST EYE DROP 0.005% 2.5 ML BOTTLE EACHEYE SCH (21:39)
[2021-05-13] MEDS: ATORVASTATIN 40 MG TABLET PO SCH (21:39)
[2021-05-13] MEDS: INSULIN GLARGINE, 100 UNIT/ML CARTRIDGE SQ SCH (21:56)
--- NOTE | 2021-05-13 22:10 | NUR ---
RN NOTES: PT'S BLOOD SUGAR 189, 30 UNITS OF LANTUS AND 4 UNITS OF REGULAR INSULIN GIVEN. NO S/S OF HYPER/HYPOGLYCEMIA. WILL CONTINUE TO MONITOR
[2021-05-14] VITALS: BP 143/79
--- NOTE | 2021-05-14 03:50 | NUR ---
RN NOTES: RECEIVED PTT RESULT FROM LAB. PTT-70.5. NO CHANGES NEEDED. WILL DO ANOTHER PTT AFTER 6 HOURS. WILL CONTINUE TO MONITOR
[2021-05-14 04:00] VITALS: BP 137/64
--- NOTE | 2021-05-14 06:33 | NUR ---
RN CLOSING NOTES: PATIENT IN BED SLEEPING BUT EASILY AROUSABLE, A/O X4 AND VERBALLY RESPONSIVE. ON ROOM AIR, O2 SAT 97% AND PT TOLERATING WELL. BREATHING EVEN ND UNLABORED. NO SOB NOTED. IV ACCESS AT LEFT HAND #20G INTACT AND PATENT. NO S/S OF INFILTRATIONS. WITH HEPARIN IV DRIP AT 1200 UNITS/HR. NO C/O PAIN OR DISCOMFORT. NO ACUTE DISTRESS. ALL DUE MEDS GIVEN ORDERED. ALL SAFETY MEASURES IN PLACE. BED ON LOWEST POSITION AND LOCKED, SIDE RAILS UP X2. PLACE CALL LIGHT WITH IN REACH. WILL ENDORSE TO MORNING SHIFT NURSE.
[2021-05-14] MEDS: HEPARIN INFUSION/D5W 500 ML IV PRN (06:38)
--- NOTE | 2021-05-14 07:30 | NUR ---
STITCHER UTILITY AM NOTES: RECEIVED PATIENT IN BED AWAKE, A/O X4 VERBALLY RESPONSIVE. ON ROOM AIR AND PT TOLERATING WELL. BREATHING EVEN AND UNLABORED. NO SOB NOTED. O2 SAT 97%. BLIND, SR HR 64 ON MONITOR. DENIES RAZA PAIN/DISCOMFORT, IV ACCES AT LEFT HAND #20G INTACT AND PATENT. NO S/S OF INFILTRATIONS. WITH HEPARIN IV DRIP AT 1200. NO C/O PAIN OR DISCOMFORT. NO ACUTE DISTRESS. ALL SAFETY MEASURES IN PLACE. BED ON LOWEST POSITION AND LOCKED, SIDE RAILS UP X2. PLACE CALL LIGHT WITH IN REACH. WILL CONTINUE TO MONITOR.
[2021-05-14] MEDS: BLOOD SUGAR DIAGNOSTIC 1 EACH STRIP IN SCH ×4 (07:45→21:17)
[2021-05-14] MEDS: PANTOPRAZOLE 40 MG TABLET.DR PO SCH (07:45)
[2021-05-14 08:00] VITALS: BP 111/72
[2021-05-14] MEDS: INSULIN REGULAR, HUMAN 100 UNIT/ML 3 ML VIAL SQ PRN ×4 (08:02→21:28)
[2021-05-14] MEDS: TIMOLOL MAL/DORZOLAM HCL OPHTH 10 ML BOTTLE EACHEYE SCH ×2 (08:06→21:32)
[2021-05-14] MEDS: ASPIRIN EC 81 MG TABLET.DR PO SCH (08:09)
[2021-05-14] MEDS: GEMFIBROZIL 600 MG TABLET PO SCH ×2 (08:09→16:40)
[2021-05-14] MEDS: GABAPENTIN 300 MG CAPSULE PO SCH ×2 (08:09→21:22)
[2021-05-14] MEDS: MULTIVITAMINS,THERAGRAN 1 UDTAB TABLET PO SCH (08:09)
--- NOTE | 2021-05-14 09:30 | NUR ---
RN NOTES DUE MEDS GIVEN
--- NOTE | 2021-05-14 10:19 | NUR ---
RN NOTE CALLED IN TO LABORATORY SPOKE WITH LORAINE, APTT DRAWN BEFORE 929, ACCORDING TO THEM, THEY WILL HAVE TO RUN IT AGAIN BECAUSE THEY COULDNT GET A RESULT.
--- NOTE | 2021-05-14 10:30 | NUR ---
RN NOTES APTT 57.5. NO CHANGE TO HEPARIN DRIP. FOR APTT TOMORROW .
[2021-05-14 10:58] LABS: BASOPHILS % (AUTO) 0.6 % (0.0-2.0); EOSINOPHILS % (AUTO) 3.8 % (0.0-6.0); HEMATOCRIT 32 % (39-51); HEMOGLOBIN 10.5 g/dL (13.5-17.5); LYMPHOCYTES # (AUTO) 2.1 K/uL (0.8-4.8); MEAN CORPUSCULAR HGB CONC 33 g/dl (31.0-36.0); MEAN CORPUSCULAR VOLUME 96 fL (80-96); MONOCYTES # (AUTO) 0.6 K/uL (0.1-1.30); MONOCYTES % (AUTO) 8.2 % (2.0-12.0); NEUTROPHILS # (AUTO) 4.4 K/uL (1.8-8.9); NEUTROPHILS % (AUTO) 59.4 % (43.0-81.0); PLATELET COUNT (AUTO) 255 K/uL (150-450); RED BLOOD CELL COUNT(AUTO) 3.27 MIL/uL (4.5-6.0); WHITE BLOOD COUNT (AUTO) 7.5 K/uL (4.3-11.0)
[2021-05-14 11:26] LABS: ALBUMIN 2.7 g/dL (3.4-5.0); BILIRUBIN,TOTAL 0.3 mg/dL (0.2-1.0); CALCIUM, SERUM 8.3 mg/dL (8.5-10.1); MAGNESIUM 2.4 mg/dL (1.8-2.4); PHOSPHORUS 3.5 mg/dL (2.5-4.9); POTASSIUM 3.9 mmol/L (3.5-5.1); TOTAL PROTEIN, SERUM 6.9 g/dL (6.4-8.2)
[2021-05-14 12:00] VITALS: BP 142/79
[2021-05-14 16:00] VITALS: BP 106/70
--- NOTE | 2021-05-14 19:19 | NUR ---
ELECTRONICS REPAIR TECHNICIAN AM NOTES: PATIENT IN BED AWAKE, A/O X4 VERBALLY RESPONSIVE. RESTING. BLIND.ON ROOM AIR AND PT TOLERATING WELL. BREATHING EVEN AND UNLABORED. NO SOB NOTED. O2 SAT 96%. BLIND, SR HR 64 ON MONITOR. DENIES CHEST PAIN/DISCOMFORT, IV ACCES AT LEFT UPPER ARM MIDLINE 18 G INTACT AND PATENT. WITH HEPARIN IV DRIP AT 1200 UNITS/HR [24 ML]. NO C/O PAIN OR DISCOMFORT. NO ACUTE DISTRESS. CCHO DIET, AMB WITH ASSIST. NO SKIN ISSUES. ALL SAFETY MEASURES IN PLACE. BED ON LOWEST POSITION AND LOCKED, SIDE RAILS UP X2. PLACE CALL LIGHT WITH IN REACH. ALL NEEDS MET AT THIS TI ME. WILL ENDORSE TO NEXT SHIFT FOR BRIAN.
--- NOTE | 2021-05-14 19:20 | NUR ---
TELE/RN OPENING NOTE RECEIVED PATIENT RESTING IN BED. AWAKE, ALERT AND ORIENTED X 4. ABLE TO MAKE NEEDS KNOWN. DENIES PAIN AT THIS TIME. CONTINUES ON ROOM AIR WITH NO S/SX OF RESPIRATORY DISTRESS NOTED. IV ACCESS TO LEFT UPPER ARM MIDLINE 18G INTACT AND PATENT. CONTINUES ON HEPARIN DRIP @ 1200 UNITS/HR. NO S/SX OF BLEEDING NOTED AT THIS TIME. NEXT PTT IS TOMORROW AM AT 0930. CONTINUES ON TELE MONITOR WITH CURRENT READING SR. PATIENT IS AMBULATORY WITH ASSIST. CALL LIGHT WITHIN REACH. ASPIRATION, FALL AND SAFETY PRECAUTIONS MAINTAINED. WILL CONTINUE TO MONITOR.
[2021-05-14 20:00] VITALS: BP 148/85
[2021-05-14] MEDS: TAMSULOSIN 0.4 MG CAP.SR.24H PO SCH (21:22)
[2021-05-14] MEDS: ATORVASTATIN 40 MG TABLET PO SCH (21:22)
[2021-05-14] MEDS: INSULIN GLARGINE, 100 UNIT/ML CARTRIDGE SQ SCH (21:27)
[2021-05-14] MEDS: LATANOPROST EYE DROP 0.005% 2.5 ML BOTTLE EACHEYE SCH (21:33)
--- NOTE | 2021-05-14 22:42 | NUR ---
TELE/RN NOTE RECEIVED CALL FROM CROCODILE FARMER ROGERIO REQUESTING PATIENTS CURRENT VITAL SIGNS AND FOR A RAPID COVID 19 TEST TO BE DONE BY TOMORROW FOR TRANSFER TO [facility]. ORDER PLACED FOR COVID-19 ANTIGEN TEST. PATIENT SWABBED AT 22:40 AND SPECIMEN RETURNED TO LAB.
[2021-05-15] VITALS: BP 152/83
[2021-05-15 04:00] VITALS: BP 139/84
[2021-05-15] MEDS: HEPARIN INFUSION/D5W 500 ML IV PRN (04:53)
--- NOTE | 2021-05-15 06:20 | NUR ---
TELE/RN CLOSING NOTE PATIENT IS CURRENTLY SLEEPING IN BED. ALERT AND ORIENTED X 4. ABLE TO MAKE NEEDS KNOWN. DENIES PAIN AT THIS TIME. CONTINUES ON ROOM AIR WITH NO S/SX OF RESPIRATORY DISTRESS NOTED. IV ACCESS TO LEFT UPPER ARM MIDLINE 18G INTACT AND PATENT. CONTINUES ON HEPARIN DRIP @ 1200 UNITS/HR. NO S/SX OF BLEEDING NOTED AT THIS TIME. NEXT PTT IS AT 0930. CONTINUES ON TELE MONITOR WITH CURRENT READING SR. PATIENT IS AMBULATORY WITH ASSIST. CALL LIGHT WITHIN REACH. ASPIRATION, FALL AND SAFETY PRECAUTIONS MAINTAINED. WILL ENDORSE PLAN OF CARE TO ONCOMING SHIFT.
--- NOTE | 2021-05-15 07:24 | NUR ---
RN OPENING NOTE PATIENT RECEIVED IN BED, SLEEPING. PATIENT ON ROOM AIR WITH NO SIGNS OF LABORED BREATHING AT THIS TIME. LEFT UA MIDLINE IN PLACE RUNNING HEPARIN DRIP AT 1200 UNITS/HR. BED LOCKED AND IN LOWEST POSITION, CALL LIGHT WITHIN REACH, 2 SIDE RAILS UP. WILL CONTINUE TO MONITOR.
[2021-05-15 08:00] VITALS: BP 118/72
[2021-05-15] MEDS: BLOOD SUGAR DIAGNOSTIC 1 EACH STRIP IN SCH ×2 (08:03→11:48)
[2021-05-15] MEDS: GABAPENTIN 300 MG CAPSULE PO SCH (08:08)
[2021-05-15] MEDS: MULTIVITAMINS,THERAGRAN 1 UDTAB TABLET PO SCH (08:08)
[2021-05-15] MEDS: ASPIRIN EC 81 MG TABLET.DR PO SCH (08:08)
[2021-05-15] MEDS: GEMFIBROZIL 600 MG TABLET PO SCH (08:08)
[2021-05-15] MEDS: PANTOPRAZOLE 40 MG TABLET.DR PO SCH (08:08)
[2021-05-15] MEDS: INSULIN REGULAR, HUMAN 100 UNIT/ML 3 ML VIAL SQ PRN ×2 (08:09→11:59)
[2021-05-15] MEDS: TIMOLOL MAL/DORZOLAM HCL OPHTH 10 ML BOTTLE EACHEYE SCH (08:09)
[2021-05-15 12:00] VITALS: BP 138/74
--- NOTE | 2021-05-15 13:18 | NUR ---
RN NOTE REPORT GIVEN TO MARCELO GIVENS AT [facility] FOR PT TRANSFER. PER YESI GALARZA, PT TO STAY ON HEPARIN DRIP AT 1200 UNITS/HR DURING TRANSFER. WILL CONTINUE TO MONITOR.
[2021-05-15 16:00] VITALS: BP 158/75
--- NOTE | 2021-05-15 17:02 | NUR ---
RN NOTE PATIENT DISCHARGE ORDER TO BE TRANSFER TO [facility] AT [facility] FOR CABG PROCEDURE. PATIENT ON HEPARIN DRIP AT 1200 UNITS/HR, TO REMAIN ON DRIP PER [facility] ORDER. REPORT GIVEN TO MARCELO GIVENS, AWARE OF PT REMAINING ON HEPARIN DRIP AT THIS TIME. MIDLINE LEFT IN PLACE.
--- NOTE | 2021-05-15 18:31 | NUR ---
RN NOTE ATTEMPTED TO CONTACT DAUGHTER YOLANDA CURRY X3 THROUGHOUT AFTERNOON REGARDING PT TRANSFER TO OTHER FACILITY. DAUGHTER DID NOT ANSWER. VOICEMAIL NOT SET UP, UNABLE TO LEAVE A MESSAGE CHARGE NURSE MOHINDER CHARISMA.
== END 2021-05-15 17:17 | DRG 190 ==
LOC: ER 08:08 → TELE1 15:44
PROVIDERS: ATTEND Nurse Practitioner Acute Care
PROC: 4A023N7 Measurement of Cardiac Sampling and Pressure, Left Heart, Percutaneous Approach (ICD-10-PCS; principal; 2021-05-11)
PROC: B211YZZ Fluoroscopy of Multiple Coronary Arteries using Other Contrast (ICD-10-PCS; 2021-05-11)
PROC: 05HC33Z Insertion of Infusion Device into Left Basilic Vein, Percutaneous Approach (ICD-10-PCS; 2021-05-14)
DX: I21.4 Non-ST elevation (NSTEMI) myocardial infarction (principal); N17.0 Acute kidney failure with tubular necrosis; E11.649 Type 2 diabetes mellitus with hypoglycemia without coma; I13.0 Hypertensive heart and chronic kidney disease with heart failure and stage 1 through stage 4 chronic kidney disease, or unspecified chronic kidney disease; N18.9 Chronic kidney disease, unspecified; E11.22 Type 2 diabetes mellitus with diabetic chronic kidney disease; E11.65 Type 2 diabetes mellitus with hyperglycemia; Z20.822 Contact with and (suspected) exposure to COVID-19; E11.42 Type 2 diabetes mellitus with diabetic polyneuropathy; H40.9 Unspecified glaucoma; I25.10 Atherosclerotic heart disease of native coronary artery without angina pectoris; K21.9 Gastro-esophageal reflux disease without esophagitis; E11.36 Type 2 diabetes mellitus with diabetic cataract; E78.5 Hyperlipidemia, unspecified; E87.1 Hypo-osmolality and hyponatremia; N40.0 Benign prostatic hyperplasia without lower urinary tract symptoms; Z79.4 Long term (current) use of insulin; Z79.899 Other long term (current) drug therapy; I50.9 Heart failure, unspecified; K59.00 Constipation, unspecified; G47.00 Insomnia, unspecified; E66.9 Obesity, unspecified; Z68.31 Body mass index [BMI] 31.0-31.9, adult
CPT/HCPCS: 36415; 70450-TC; 71045-TC; 80048-TC; 80053-TC; 80061-TC; 80076-TC; 81001; 82962-TC; 83605-TC; 83735-TC; 84100-TC; 84443-TC; 84484-TC; 85025-TC; 85610-TC; 85730-TC; 87040-TC; 87081-TC; 87086-TC; 93307-TC; C1887; C9803; G0378; G0480; G0500; J0696; J1644; J1815; J2250; J2310; J3010; J3370; J3480; J3490; J7030; J7060; J7120; Q9967; U0003